=== PATIENT | female | born 2005 | race Caucasian/White ===

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

== ENCOUNTER 2024-01-26 19:35 | Emergency (ER) | payer OTHER, SELFPAY ==
--- OUTSIDE RECORDS SUMMARY | 2024-01-26 19:38 | XMS REPORT | Continuity of Care Document ---
Author Name Unknown Address [address] [place] [address] [facility] thconnect Address [address] [place] [address] Care Team Providers Care Cost Manager Name Role Phone Jane Parnell Primary Care Physician ELIZ LEE Attending Clinician Unavail EL Trejo Attending Clinician Unavailable ELIZ LEE Attending Clinician Unavail able Doctor Unassigned, [place] Attending Clinician U RADHA Hoang Attending Clinician Unavailable Jane Parnell Attending Clinician Lisa Palomares Attending Clinician BARON Almanza Attending Clinician Baron Laws MD Attending Clinician [phone] BENITA OLGUIN Attending Clinician Unavailable ELSA WINKLER Attending Clinician EL Benoit Attending Clinician ELIZ Casanova Admitting Clinician LESA Suazo Admitting Clinician Shiva malone Payers Payer Name Policy Type Policy Number Effective Date Expirati on Date Source [facility] MEDICAID STAR [id number] 2021 00:00:00 Problems Condition Name Condition Details Condition Category Status Onset Date Resolution Date Last Treatment Date Treating Clinician Comments Source 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 Active 2022-03 00:00: 00 [facility] Allergies, Adverse Reactions, Alerts Allergy Name Allergy Type Status Severity Reaction(s) Onset Date Inactive Date Treating Clinician Comments Source NO KNOWN ALLERGIE S Drug Class Active [facility] Social History Social Habit Start Date Stop Date Quantity Comments Source Sexual orientation [facility] Alcohol intake 2022-12-28 00:00:00 2022-12-28 00:00:00 Lifetime non-drinker (finding) [facility] Exposure to SARS-CoV-2 (event) 2022-07-24 00:00:00 2022-08-03 11:01:00 Not sure [facility] Tobacco use and exposure 2022-08-03 00:00:00 2022-08-03 00:00:00 Smokeless tobacco non-user [facility] History of Social function 2022-08-03 00:00:00 2022-08-03 00:00:00 [facility] Sex Assigned At 2005 00:00:00 2005 00:00:00 [facility] Smoking Status Start Date Stop Date Source Tobacco smoking consumption unknown [facility] Never smoked tobacco [facility] Medications Ordered Medication Name Filled Medication Name Start Date Stop Date Current Medication? Ordering Clinician Indication Dosage Frequency Signature (SIG) Comments Components Source sertraline (Zoloft) 50 MG tablet 11-23 00:00: 00 Yes [facility] Vital Signs Vital Name Observation Time Observation Value Comments S ource Systolic blood pressure 2022-12-28 18:32:00 123 mm[Hg] [facility] Diastolic blood pressure 2022-12-28 18:32:00 88 mm[Hg] [facility] Heart rate 2022-12-28 18:32:00 91 /min [facility] Body temperature 2022-12-28 18:32:00 36.11 Lyn [facility] Body height 2022-12-28 18:32:00 165.1 cm [facility] Body weight 2022-12-28 18:32:00 65.772 [facility] BMI 2022-12-28 18:32:00 24.13 kg/m2 [facility] Body mass index (BMI) [Percentile] Per age and sex 2022-12-28 18:32:00 76.95 % [facility] Systolic blood pressure 2022-09-07 15:05:00 145 mm[Hg] [facility] Diastolic blood pressure 2022-09-07 15:05:00 94 mm[Hg] [facility] Heart rate 2022-09-07 15:05:00 92 /min [facility] Body temperature 2022-09-07 15:05:00 36.11 Lyn [facility] Body height 2022-09-07 15:05:00 162.6 cm [facility] Body weight 2022-09-07 15:05:00 74.844 [facility] BMI 2022-09-07 15:05:00 28.32 kg/m2 [facility] Body mass index (BMI) [Percentile] Per age and sex 2022-09-07 15:05:00 92.51 % [facility] Heart rate 2022-08-03 16:05:00 85 /min [facility] Body temperature 2022-08-03 16:05:00 36.28 Lyn [facility] Body height 2022-08-03 16:05:00 165.1 cm [facility] Body weight 2022-08-03 16:05:00 81.647 [facility] BMI 2022-08-03 16:05:00 29.95 kg/m2 [facility] Body mass index (BMI) [Percentile] Per age and sex 2022-08-03 16:05:00 94.85 % [facility] Systolic blood pressure 2022-08-03 16:05:00 114 mm[Hg] [facility] Diastolic blood pressure 2022-08-03 16:05:00 78 mm[Hg] [facility] Procedures Procedure Date / Time Performed Performing Clinicia n Source EXTERNAL PROVIDER RECORDS 2022-08-25 05:01:00 Doctor Unassigned, [place] [facility] Encounters Start Date/Time End Date/Time Encounter Type Admission Type Attending Clinicians Care Facility Care Department Encounter ID Source 2022-11-17 15:28:20 Inpatient ELIZ LEE [facility] [id number] [facility] 2022-09-22 14:08:15 Outpatient [facility] [id number] [facility] 2022-08-30 10:35:13 Outpatient [facility] [id number] [facility] 2022-08-03 11:00:31 Outpatient [facility] [id number] [facility] 2022-07-25 14:29:39 Outpatient [facility] [id number] [facility] 2022-07-12 15:59:27 Outpatient [facility] [id number] [facility] 2022-07-06 16:02:15 Outpatient [facility] [id number] [facility] 2022-06-06 08:35:41 Outpatient [facility] [id number] [facility] 2022-06-05 15:28:44 Outpatient [facility] [id number] [facility] 2023-10-15 09:00:00 2023-10-15 09:00:00 Outpatient EL VAZQUEZ [facility] [id number] [facility] 2022-12-28 13:30:00 2022-12-28 13:30:00 Office Visit ELIZ LEE [id number] [id number] [facility] 2022-12-08 07:45:00 2022-12-08 07:45:00 Outpatient ELIZ LEE [facility] [id number] [facility] 2022-09-07 10:15:00 2022-09-07 10:15:00 Office Visit ELIZ LEE [address] [id number] [id number] [facility] 2022-08-25 00:00:00 2022-08-25 00:00:00 Orders Only Doctor Unassigned, [place] [facility] [id number] [facility] 2022-08-17 09:00:00 2022-08-17 09:00:00 Outpatient RADHA SEGURA [facility] [id number] [facility] 2022-08-17 00:00:00 2022-08-17 00:00:00 Telephone Jane Kevin [facility] [id number] [facility] 2022-08-15 00:00:00 2022-08-15 00:00:00 Telephone Lisa Yoon [facility] [id number] [facility] 2022-08-10 13:00:00 2022-08-10 13:00:00 Outpatient BARON MORAN [facility] [id number] [facility] 2022-08-09 14:30:00 2022-08-09 15:33:45 Outpatient BARON MORAN [facility] [id number] [facility] 2022-08-09 14:30:00 2022-08-09 15:33:45 Ancillary Visit Lisa Yoon Craig L [facility] [id number] [facility] 2022-08-09 13:45:00 2022-08-09 13:45:00 Outpatient BARON MORAN [facility] [id number] [facility] 2022-08-03 11:00:00 2022-08-03 11:00:00 Office Visit ELIZ LEE [id number] [id number] [facility] 2022-05-25 11:07:00 2022-06-27 10:15:00 Inpatient E BENITA OLGUIN [facility] [id number] [facility] 2022-06-15 12:45:00 2022-06-15 12:45:00 Outpatient ELSA WINKLER [facility] [id number] [facility] 2022-05-25 09:06:00 2022-05-25 23:59:00 Outpatient EL COLBY [facility] [id number] [facility] 2022-05-25 05:00:00 2022-05-25 05:00:00 Outpatient ELSA WINKLER [facility] [id number] [facility]
--- NOTE | 2024-01-26 20:12 | ER ---
Nurse's Notes [facility] Name: Gabriela Crowe Age: 18 yrs Sex: Female : 2005 Arrival Date: 01/26/2024 Time: 19:35 Bed 20 Private MD: Diagnosis: Suicidal ideations;Schizophrenia, unspecified;Bipolar disorder, unspecified Presentation: 01/25 19:50 Chief complaint: Pts father states that patient tried to runaway with boyfriend on cm10 . Pt's father brought patient back home. Pt has been refusing to take medication over the last 3 nights and pt was cutting left arm with scissors. Pt reports SI and denies HI. Pt states that she has cut herself in the past. Pt states that she is tired of her stepmom and her stepmoms granddaughter to stop controlling her life. Pt states that she does not want to take her medication because she doesn't like how it makes her feel. Coronavirus screen: Client denies travel out of the [place] in the last 14 days. Ebola Screen: Patient denies travel to an Ebola-affected area in the 21 days before illness onset. No symptoms or risks identified at this time. Initial Sepsis Screen: Does the patient have a suspected source of infection? No. Patient's initial sepsis screen is negative. Initial Sepsis Screen: Does the patient meet any 2 criteria?. Risk Assessment: Do you want to hurt yourself or someone else? Patient reports desire/thoughts of hurting themselves or someone else. Provider notified. 19:50 Onset of symptoms was January 26, 2024. 10 19:52 Method Of Arrival: Ambulatory cm10 19:52 Acuity: RAI 2 cm10 Triage Assessment: 19:58 General: Appears in no apparent distress. comfortable, Behavior is calm, cooperative. cm10 Pain: Denies pain. Neuro: No deficits noted. Level of Consciousness is awake, alert, obeys commands, Oriented to person, place, time, situation, Appropriate for age. Respiratory: No deficits noted. Airway is patent Respiratory effort is even, unlabored, Respiratory pattern is regular, symmetrical. 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 - Infectious Disease History:: Denies. - Social history:: Smoking status: Patient denies any tobacco usage or history of. Screenin:02 [facility] ED Fall Risk Assessment (Adult) History of falling in the last 3 months, rg5 including since admission No falls in past 3 months (0 pts) Confusion or Disorientation No (0 pts) Intoxicated or Sedated No (0 pts) Impaired Gait No (0 pts) Mobility Assist Device Used No (0 pt) Altered Elimination No (0 pt) Score/Fall Risk Level 0 - 2 = Low Risk Oriented to surroundings, Maintained a safe environment, Hourly rounding (assess needs \\T\\ fall precautionary measures) done. Abuse screen: Denies threats or abuse. Nutritional screening: No deficits noted. Tuberculosis screening: No symptoms or risk factors identified. Assessment: 20:02 General: Appears in no apparent distress. comfortable, Behavior is calm, cooperative, rg5 appropriate for age. 20:02 Pain: Denies pain. Neuro: Level of Consciousness is awake, alert, obeys commands, rg5 Oriented to person, place, time, situation, Reports suicidal ideation. Cardiovascular: Patient's skin is warm and dry. Rhythm is sinus rhythm. Respiratory: Airway is patent Trachea midline Respiratory effort is even, unlabored, Respiratory pattern is regular, symmetrical. GI: Abdomen is round non-distended. : No signs and/or symptoms were reported regarding the genitourinary system. EENT: No deficits noted. Derm: Skin is intact, Skin is dry, Skin is normal, Skin temperature is warm. Musculoskeletal: Circulation, motion, and sensation intact. Range of motion: intact in all extremities. 20:03 General: PT STATES THAT THE ONLY VISITOR SHE WANTS IS HER BOYFRIEND JESSICA. DOES NOT cm10 WANT FATHER IN ROOM.. 21:00 Reassessment: No changes from previously documented assessment. Patient and/or family rg5 updated on plan of care and expected duration. Pain level reassessed. 21:00 General: Appears in no apparent distress. comfortable. Respiratory: Airway is patent rg5 Trachea midline Respiratory effort is even, unlabored, Respiratory pattern is regular, symmetrical. 22:48 Reassessment: No changes from previously documented assessment. Patient and/or family rg5 updated on plan of care and expected duration. Pain level reassessed. General: Appears in no apparent distress. comfortable. Respiratory: Airway is patent Trachea midline Respiratory effort is even, unlabored, Respiratory pattern is regular, symmetrical. 01/26 00:20 Reassessment: No changes from previously documented assessment. Patient and/or family rg5 updated on plan of care and expected duration. Pain level reassessed. :23 Reassessment: REPORT GIVEN TO ALISA YOUNG RN. dd2 01:20 Reassessment: No changes from previously documented assessment. Patient and/or family rg5 updated on plan of care and expected duration. Pain level reassessed. 01:20 General: Appears in no apparent distress. comfortable, Behavior is calm, cooperative, rg5 appropriate for age. Respiratory: Airway is patent Trachea midline Respiratory effort is even, unlabored, Respiratory pattern is regular, symmetrical. Psych: 01/25 19:50 [place] Suicide Severity Screening: In the past month, have you wished you were cm10 or wished you could go to sleep and not wake up? Patient responds "yes." "In the past month, have you actually had any thoughts of killing yourself?" Patient responds "yes." "In your lifetime, have you ever done anything, started to do anything, or prepared to do anything to end your life?" Patient responds "no.". Subjective: Delusions are denied, Hallucinations are denied. Objective: Patient is cooperative, Speech is normal, Affect is appropriate, Patient has mutilated themselves by Superficial lacerations to left arm. Pt denies substance abuse. Commitment: Patient will be a voluntary commitment. 20:02 Safety Checks: Personal items have been removed. Door is open. No visitors are present rg5 at this time. 20:02 Interventions: Removed personal items and placed in bag. Patient placed in hospital rg5 gown. Searched person for dangerous items. Urine collected and sent for urine drug test. Belonging list filled out. Vital Signs: 19:52 BP 134 / 89; Pulse 71; Resp 18; Temp 98.5(O); Pulse Ox 99% on R/A; Weight 87.5 kg; Pain cm10 0/10; 20:55 BP 115 / 62; Pulse 68; Resp 18; Temp 97.2; Pulse Ox 99% on R/A; af3 01/26 01:31 BP 109 / 53; Pulse 60; Resp 18; Temp 97.4; Pulse Ox 100% on R/A; af3 01/25 19:52 Pain Scale: Adult cm10 [place] Coma Score: 01/25 20:02 Eye Response: spontaneous(4). Motor Response: obeys commands(6). Verbal Response: rg5 oriented(5). Total: 15. ED Course: 19:38 Patient arrived in ED. ra3 19:40 Belkys Ca PA-C is PHCP. sb4 19:40 Beau Mendes MD is Attending Physician. sb4 19:58 Triage completed. cm10 19:59 Arm band placed on left wrist. Patient placed in an exam room, on a stretcher. cm10 20:02 Safety Checks: Personal items have been removed. The door is open or patient has been rg5 placed in a hallway bed/chair. Sitter present at this time. 20:02 Patient has correct armband on for positive identification. Placed in gown. Bed in low rg5 position. Side rails up X 1. Valuables inventory done. See valuables checklist. Noise minimized. PO fluids given. Verbal reassurance given. 20:02 No provider procedures requiring assistance completed. rg5 20:19 Jason Reveles, RN is Primary Nurse. rg5 20:35 EKG done, by engineering technical writer. af3 20:55 Urinalysis w/ reflexes Sent. af3 20:55 Urine Drug Screen Sent. af3 21:30 Inserted saline lock: 20 gauge in left antecubital area, using aseptic technique. Blood rg5 collected. Flushed with 10 mL NS. 21:50 Contacted [facility] for evaluation. rv1 22:17 Sondra with [facility] ETA 30 mins. rv1 01/26 01:37 Provided Education on: post er care. rg5 01:37 IV discontinued, bleeding controlled, No redness/swelling at site. Pressure dressing rg5 applied. Administered Medications: 01/25 21:30 Drug: Macrobid PO 100 mg PO once; administer with food Route: PO; rg5 22:00 Follow up: Response: No adverse reaction rg5 Medication: 20:02 VIS not applicable for this client. rg5 Outcome: 20:11 ER care complete, transfer ordered by . sb4 23:33 ER care complete, transfer ordered by MD. rush4 01/26 01:38 [place] [facility] [place] Condition: stable Discharge instructions given to EMS, Instructed on the need for transfer, 01:39 Patient left the ED. rg5 Signatures: Priya De RN RN vc1 Belkys Ca PA-C PA-C sb4 Eunice Burnette rv1 Trudy Mohan RN RN cm10 Gabby Olea ra3 Jason Reveles RN RN rg5 Berta Adams af3 LACEY ATKINSON RN RN dd2 Corrections: (The following items were deleted from the chart) 01/25 20:00 19:52 Chief complaint: Pts father states that patient tried to runaway with boyfriend cm10 on . Pt's father brought patient back home. Pt has been refusing to take medication over the last 3 nights and pt was cutting left arm with scissors. Pt reports SI and denies HI. Pt states that she has cut herself in the past. Pt states that she is tired of her stepmom and her stepmoms granddaughter to stop controlling her life. Pt states that she does not want to take her medication because she doesn't like how it makes her feel. cm10 20:00 19:52 Coronavirus screen: Client denies travel out of the [place] in the last 14 days. [id number] 20:00 19:52 Ebola Screen: Patient denies travel to an Ebola-affected area in the 21 days cm10 before illness onset. No symptoms or risks identified at this time. cm10 20:00 19:52 Initial Sepsis Screen: Does the patient meet any 2 criteria? cm10 cm10 20:00 19:52 Risk Assessment: Do you want to hurt yourself or someone else? Patient reports cm10 desire/thoughts of hurting themselves or someone else. Provider notified. cm10 20:00 19:52 Onset of symptoms was January 26, 2024 cm10 cm10 20:00 19:52 Initial Sepsis Screen: Does the patient have a suspected source of infection? No. cm10 Patient's initial sepsis screen is negative. cm10 01/26 05:17 01:38 Discharge instructions given to EMS, Instructed on the need for transfer, rg5 vc1
--- NOTE | 2024-01-26 20:12 | EDPHYS ---
Physician Documentation [facility] Name: Gabriela Crowe Age: 18 yrs Sex: Female : 2005 Arrival Date: 01/26/2024 Time: 19:35 Bed 20 Private MD: ED Physician Beau Mendes HPI: 01/25 19:59 This 18 yrs old Female presents to ER via Ambulatory with complaints of Suicidal sb4 Ideation. 19:59 The patient presents to the emergency department with a history of a suicide gesture, sb4 where the patient cut wrists, suicide ideation, and the patient has a plan, to cut oneself and bleed. Onset: The symptoms/episode began/occurred today. Past psychiatric history: Prior diagnosis: bipolar disorder, schizophrenia, Psychiatric medications include: risperidone. Associated signs and symptoms: Pertinent negatives: homicidal ideation, substance abuse. 20:00 The patient has experienced a previous episode, many years ago. Patient states that she sb4 tried to run away with her boyfriend 3 days ago but had no money. Her dad brought her back home and she has been refusing to take her psych meds since. Today she tried to cut herself and kill herself with scissors. States that she has attempted in the past in a similar manner. She has been inpatient. Denies any homicidal ideation. 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 - Infectious Disease History:: Denies. - Social history:: Smoking status: Patient denies any tobacco usage or history of. ROS: 20:01 Constitutional: Negative for fever, chills, and weight loss, sb4 20:01 Psych: Positive for suicide gesture, suicidal ideation, 20:01 All other systems are negative, Exam: 20:01 Head/Face: Normocephalic, atraumatic. Eyes: Extra-ocular motions intact. Periorbital sb4 areas with no swelling, redness, or edema. ENT: Mucous membranes moist. 20:01 Constitutional: The patient appears in no acute distress, alert, awake, agitated, 20:01 Skin: injury, Minor superficial laceration left forearm, 20:01 Psych: Behavior/mood is cooperative, suicidal, angry, Affect is flat, Oriented to person, place, time, Patient having thoughts of suicide. Plan for suicide is cut wrists Vital Signs: 19:52 BP 134 / 89; Pulse 71; Resp 18; Temp 98.5(O); Pulse Ox 99% on R/A; Weight 87.5 kg; Pain cm10 0/10; 20:55 BP 115 / 62; Pulse 68; Resp 18; Temp 97.2; Pulse Ox 99% on R/A; af3 01/26 01:31 BP 109 / 53; Pulse 60; Resp 18; Temp 97.4; Pulse Ox 100% on R/A; af3 01/25 19:52 Pain Scale: Adult cm10 [place] Coma Score: 01/25 20:02 Eye Response: spontaneous(4). Motor Response: obeys commands(6). Verbal Response: rg5 oriented(5). Total: 15. MDM: 19:58 Medical Screening Exam initiated sb4 21:19 Data reviewed: vital signs, nurses notes, lab test result(s), EKG, radiologic studies. sb4 Counseling: I had a detailed discussion with the patient and/or guardian regarding the historical points, exam findings, and any diagnostic results supporting the discharge/admit diagnosis, lab results, radiology results, the need to transfer to another facility, [facility] does not immediately have the required specialist. 22:00 Differential diagnosis: drug withdrawal. acute psychotic break, depression, psychosis sb4 secondary to non-compliance. 01/26 00:22 Management of patient was discussed with the following: [facility]. 01/25 19:57 Order name: Acetaminophen; Complete Time: 21:48 sb4 01/25 19:57 Order name: Basic Metabolic Panel; Complete Time: 21:48 sb4 01/25 19:57 Order name: CBC with Diff; Complete Time: 21:33 sb4 01/25 19:57 Order name: ETOH Level; Complete Time: 21:44 sb4 01/25 19:57 Order name: Hepatic Function; Complete Time: 21:48 sb4 01/25 19:57 Order name: PT-INR; Complete Time: 21:41 sb4 01/25 19:57 Order name: Test, Urine; Complete Time: 21:00 sb4 01/25 19:57 Order name: Ptt, Activated; Complete Time: 21:41 sb4 01/25 19:57 Order name: Salicylate; Complete Time: 22:03 sb4 01/25 19:57 Order name: Urinalysis w/ reflexes; Complete Time: 21:00 sb4 01/25 19:57 Order name: Urine Drug Screen; Complete Time: 21:08 sb4 01/25 21:01 Order name: Urine Culture EDAR 01/25 19:57 Order name: IV Saline Lock; Complete Time: 21:24 sb4 01/25 19:57 Order name: Labs collected and sent; Complete Time: 21:24 sb4 01/25 19:57 Order name: Suicide Precautions; Complete Time: 21:24 sb4 01/25 19:57 Order name: Suicide Screening ([place]); Complete Time: 21:24 sb4 EC/23 20:34 Rate is 69 beats/min. Rhythm is regular, Normal Sinus Rhythm. [place] interval is normal at sb4 124 msec. QRS interval is normal at 88 msec. QT interval is normal at 396 msec. No Q waves. T waves are Normal. No ST changes noted. Clinical impression: Normal ECG. Interpreted by me. Reviewed by me. Administered Medications: 21:30 Drug: Macrobid PO 100 mg PO once; administer with food Route: PO; rg5 22:00 Follow up: Response: No adverse reaction rg5 Disposition: 01/26 02:39 Co-signature as Attending Physician, Beau Mendes MD I reviewed the patient's care rt provided by the Advanced Practice Provider and agree with the diagnosis and treatment plan. Disposition Summary: 01/26/24 23:33 Transfer Ordered Notes: Transfer Location: Psych Facility(01/26/24 23:33) sb4 Reason: Higher level of care(01/26/24 23:33) sb4 Condition: Fair(01/26/24 23:33) sb4 Problem: new(01/26/24 23:33) sb4 Symptoms: are unchanged(01/26/24 23:33) sb4 Accepting Physician: psych(01/27/24 01:39) rg5 Diagnosis - Suicidal ideations(01/26/24 23:33) sb4 - Schizophrenia, unspecified sb4 - Bipolar disorder, unspecified sb4 Discharge Instructions: - Discharge Summary Sheet rv1 Forms: - Medication Reconciliation Form sb4 - SBAR form rv1 Prescriptions: - Macrobid 100 mg Oral capsule - take 1 capsule ORAL route every 12 hours for 5 days; 10 capsule; Refills: 0, sb4 Product Selection Permitted Signatures: Dispatcher [employer] EDBelkys Louise PA-C PA-C sb4 Beau Mendes MD MD rt Trudy Mohan RN RN cm10 Jason Reveles, VINOD RN rg5 Corrections: (The following items were deleted from the chart) 01/25 20:27 19:57 EKG - Nurse/Tech ordered. sb4 sb4 20:32 20:11 psych sb4 sb4 20:32 20:11 Psych Facility sb4 sb4 20:32 20:11 Higher level of care sb4 sb4 20:32 20:11 Fair sb4 sb4 20:32 20:11 new sb4 sb4 20:32 20:11 are unchanged sb4 sb4 20:32 20:11 Suicidal ideations sb4 sb4 01/26 01:39 01/25 23:33 psych sb4 rg5
[2024-01-26 20:56] LABS: Specific Gravity > 1.030 (1.005-1.030)
[2024-01-26 20:57] LABS: Specific Gravity > 1.030 (1.005-1.030); Sqamous Epithelial <5 /HPF (None Seen); Urine Bacteria <20 /HPF (<20); Urine Bilirubin NEGATIVE (Negative); Urine Blood 3+ (OVER) (Negative); Urine Clarity Extremely Turbid (Clear); Urine Color Yellow (Yellow); Urine Crystals Unidentified Few /HPF (None Seen); Urine Culture Reflex Order REFLEXED; Urine Glucose NEGATIVE (Negative); Urine Ketones NEGATIVE (Negative); Urine Microscopic Reflex YN ORDER UMIC; Urine Mucus Slight /HPF (None Seen); Urine Nitrite 2+ (Negative); Urine Protein TRACE (Negative); Urine RBC >50 /HPF (None Seen); Urine Urobilinogen Normal (Normal); Urine WBC 20-50 /HPF (<5); Urine WBC Clump Rare /HPF (None Seen); Urine Yeast (Budding) Trace /HPF (None Seen)
[2024-01-26 21:05] LABS: Barbiturates NEGATIVE (NEGATIVE); Benzodiazepines NEGATIVE (NEGATIVE); Cocaine NEGATIVE (NEGATIVE); METHAMPHETAM NEGATIVE (NEGATIVE); Methadone NEGATIVE (NEGATIVE); Opiates NEGATIVE (NEGATIVE); Phencyclidine NEGATIVE (NEGATIVE); THC Cannibis NEGATIVE (NEGATIVE)
[2024-01-26] MEDS ORDERED: NITROFURAN MACRO 100 MG CAP PO ONE (21:27)
[2024-01-26 21:31] LABS: Absolute Basophils 0.1 K/uL (0-0.5); Absolute Eosinophils 0.5 K/uL (0-0.5); Absolute Lymphocytes (CBC) 3.4 K/uL (0.7-4.9); Absolute Monocytes 0.8 K/uL (0.1-1.3); Absolute Neutrophil 6.2 K/uL (1.8-8.0); Basophils % 0.9 % (0-1.3); Eosinophils % 4.3 % (0-4.4); Hematocrit 35.6 % (36.0-45.0); Hemoglobin 11.7 g/dL (12.0-15.0); Lymphocytes % 31.3 % (15.3-44.8); MCH 28.3 pg (27.0-35.0); MCHC 32.8 g/dL (32.0-36.0); MCV 86.3 fL (80-100); MPV 8.6 fL (7.6-11.3); Monocytes % 6.9 % (3.3-12.3); Neutrophils % 56.6 % (41.7-73.7); Nucleated Red Blood Cells % 0.1 % (0-0); Platelets 306 thou/uL (152-406); RBC Red Blood Cell Count 4.13 M/uL (3.86-4.86); Red Cell Distribution Width 13.3 % (12.1-15.2)
[2024-01-26 21:40] LABS: PT Prothrombin Time 11.9 SECONDS (9.4-12.5); PTT, Activated Partial Thromb 35.6 SECONDS (24.3-36.9); Protime INR 1.06
[2024-01-26 21:48] LABS: ALT/SGPT 18 U/L (13-56); AST/SGOT < 10 U/L (15-37); Albumin 3.3 g/dL (3.4-5.0); Albumin/Globulin Ratio 0.8 (1.1-1.8); Alkaline Phosphatase 79 U/L (45-117); Anion Gap 9.9 mEq/L (5.0-15.0); BUN Blood Urea Nitrogen 15 mg/dL (7-18); Bicarbonate 24 mEq/L (21-32); Bilirubin Direct < 0.2 mg/dL (0-0.2); Bilirubin Total 0.2 mg/dL (0.2-1.0); Globulin 3.9 g/dL (2.3-3.5); Glomerular Filtration Rate 98 ml/min (=/>90); Glucose Level 116 mg/dL (74-106); Potassium 3.9 mEq/L (3.5-5.1); Protein, Total 7.2 g/dL (6.4-8.2); Sodium Level 141 mEq/L (136-145)
[2024-01-27 02:44] VITALS: BP 109/53; TEMP 97.4; O2SAT 100
--- NOTE | 2024-01-28 12:01 | EKG ---
Test Date: 2024-01-26 Test Time: 20:32:22 Business Support Assistant: AF MEASUREMENT RESULTS: Intervals: Rate: 69 [place]: 124 QRSD: 88 QT: 396 QTc: 424 [place]: P: 36 NJ: 124 QRS: 62 T: 65 INTERPRETIVE STATEMENTS: Normal sinus rhythm Normal ECG No previous ECG available for comparison Electronically Signed On 01-28-24 11:59:22 REFINERY OPERATOR REFORMING UNIT by Derik Borja
== END 2024-01-27 01:39 ==
LOC: ER 19:35
DX: R45.851 Suicidal ideations (principal); F25.0 Schizoaffective disorder, bipolar type
CPT/HCPCS: 36415; 80048; 80076; 80143; 80179; 80307; 81001; 81025; 82077; 85025; 85610; 85730; 87077; 87086; 87088; 87186; 93005; 99285

== ENCOUNTER 2024-07-10 21:44 | Emergency (ER) | payer SELFPAY ==
--- OUTSIDE RECORDS SUMMARY | 2024-07-10 21:52 | XMS REPORT | Continuity of Care Document ---
Author Name Unknown Address [address] [facility] [address] [place] [address] [facility] Address [address] [address] [place] [address] Care Team Providers Care Accessioner Name Role Phone Jane Parnell Primary Care Physician + [phone] ELIZ LEE Attending Clinician Unavail prabhu Cruz MD, Deedee Weiner Attending Clinician [phone] Liliana Muniz MD Attending Clinician [phone] Yonathan Crawford MD Attending Clinician [phone] YONATHAN CRAWFORD Attending Clinician Unavailable EL VAZQUEZ Attending Clinician Unavailable ELIZ LEE Attending Clinician Unavail able Doctor Unassigned, [place] Attending Clinician U RADHA Hoang Attending Clinician Unavailable Jane Parnell Attending Clinician [phone] Lisa Palomares Attending Clinician SALVATORE Almanza Attending Clinician UnavailSalvatore Zafar MD Attending Clinician [phone] BENITA OLGUIN Attending Clinician Unavailable ELSA WINKLER Attending Clinician EL Benoit Attending Clinician UnavailLiliana Campbell MD Admitting Clinician LILIANA MUNIZ Admitting Clinician Unavailable ELIZ LEE Admitting Clinician ELSA Suazo Admitting Clinician Shiva malone Payers Payer Name Policy Type Policy Number Effective Date Expirati on Date Source [facility] MEDICAID STAR [id number] 2021 00:00:00 Problems Condition Name Condition Details Condition Category Status Onset Date Resolution Date Last Treatment Date Treating Clinician Comments Source Bipolar disorder, unspecifie d Bipolar disorder, unspecifie d Disease Active 2023-03 00:00: 00 [facility] History of traumatic brain injury History of traumatic brain injury Disease Active 2023-03 00:00: 00 [facility] White coat syndrome with hypertensi on White coat syndrome with hypertensi on Disease Active 2023-03 00:00: 00 [facility] Autism Autism Disease Active 2023-03 00:00: 00 [facility] 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 Active 2022-03 00:00: 00 [facility] Risk for suicide Risk for suicide Disease Resolve d 2023-03 00:00: 00 2024-02-01 00:00:00 2024-02-01 15:57:20 [facility] Seizure Seizure Disease Resolve d 2023-03 00:00: 00 2024-02-01 00:00:00 2024-02-01 15:57:20 [facility] Leukocytos is Leukocytos is Disease Resolve d 2023-03 00:00: 00 2024-02-01 00:00:00 2024-02-01 15:57:23 [facility] Sinus tachycardi a Sinus tachycardi a Disease Resolve d 2023-03 00:00: 00 2024-02-01 00:00:00 2024-02-01 15:57:35 [facility] Allergies, Adverse Reactions, Alerts Allergy Name Allergy Type Status Severity Reaction(s) Onset Date Inactive Date Treating Clinician Comments Source NO KNOWN ALLERGIE S Drug Class Active [facility] Social History Social Habit Start Date Stop Date Quantity Comments Source Gender identity 2023-05-26 08:00:22 Identifies as female gender (finding) [facility] ASSERTION Possible [facility] Sexual orientation [facility] History of Social function 2024-02-01 00:00:00 2024-02-01 00:00:00 [facility] Alcohol intake 2022-12-28 00:00:00 2022-12-28 00:00:00 Lifetime non-drinker (finding) [facility] Exposure to SARS-CoV-2 (event) 2022-07-24 00:00:00 2022-08-03 11:01:00 Not sure [facility] Tobacco use and exposure 2022-08-03 00:00:00 2022-08-03 00:00:00 Smokeless tobacco non-user [facility] Sex Assigned At 2005 00:00:00 2005 00:00:00 [facility] Smoking Status Start Date Stop Date Source Never smoked tobacco [facility] Tobacco smoking consumption unknown [facility] Medications Ordered Medication Name Filled Medication Name Start Date Stop Date Current Medication? Ordering Clinician Indication Dosage Frequency Signature (SIG) Comments Components Source risperiDONE (RisperDAL) 1 MG tablet risperiDONE (RisperDAL) 1 MG tablet 2023-03 19:07: 25 Yes 1mg Take 1 mg by mouth at bedtime. [facility] nitrofurant oin, macrocrysta l-monohydra te, (Macrobid) 100 MG capsule nitrofurant oin, macrocrysta l-monohydra te, (Macrobid) 100 MG capsule 2023-03 19:07: 25 Yes 100mg Q.5D Take 100 mg by mouth in the morning and 100 mg in the evening. [facility] escitalopra m (Lexapro) 5 MG tablet escitalopra m (Lexapro) 5 MG tablet 2023-03 19:07: 25 Yes 5mg QD Take 5 mg by mouth 1 time each day. [facility] lacosamide (Vimpat) tablet 50 mg lacosamide (Vimpat) tablet 50 mg 2023-03 19:00: 00 Yes 50mg Q.5D 50 mg, Oral, Every 12 hours scheduled, First dose (after last reorder) on Sun02/01/24 at 1900 [facility] sertraline (Zoloft) tablet 50 mg sertraline (Zoloft) tablet 50 mg 2023-03 09:00: 00 Yes 50mg QD 50 mg, Oral, Daily, First dose on Sun02/01/24 at 0900 [facility] magnesium sulfate IVPB 2 g magnesium sulfate IVPB 2 g 2023-03 08:00: 00 01-31 14:38 :00 No 2g 2 g, Intravenou s, at 25 mL/hr, Administer over 2 Hours, Once, On Sun02/01/24 at 0800, For 1 dose [facility] lacosamide (Vimpat) 50 MG tablet lacosamide (Vimpat) 50 MG tablet 2023-03 00:00: 00 03-02 23:59 :00 No [id number] 50mg Q.5D Take 1 tablet by mouth in the morning and 1 tablet before bedtime. [facility] lacosamide (Vimpat) 50 mg in sodium chloride 0.9 % 100 mL IVPB lacosamide (Vimpat) 50 mg in sodium chloride 0.9 % 100 mL IVPB 2023-03 21:00: 00 01-31 13:27 :40 No 50mg Q12H 50 mg, Intravenou s, at 200 mL/hr, Administer over 30 Minutes, Every 12 hours, First dose on Sun01/31/24 at 2100 [facility] enoxaparin (Lovenox) syringe 40 mg enoxaparin (Lovenox) syringe 40 mg 2023-03 11:10: 00 Yes 40mg 40 mg, Subcutaneo us, Every 24 hours, First dose on Sun01/31/24 at 1110, Indication s: VTE Prophylaxi s [facility] sodium chloride (NS) 0.9 % flush 10 mL sodium chloride (NS) 0.9 % flush 10 mL 2023-03 11:10: 00 Yes 10mL Q.5D 10 mL, Intravenou s, Every 12 hours scheduled, First dose on 01/31/24 at 1110, Administer at least once every 12 hours [facility] acetaminoph en (Tylenol) tablet 650 mg acetaminoph en (Tylenol) tablet 650 mg 2023-03 11:08: 26 Yes 650mg Q4H 650 mg, Oral, Every 4 hours PRN, mild pain (1-3), fever, moderate pain (4-6), headaches, Temp >100.4 F, Starting on Yumi 01/31/24 at 1108, Max acetaminop hen = 4000mg/day (4gm/day) [facility] sodium phosphates 30 mmol in sodium chloride 0.9 % 100 mL IVPB sodium phosphates 30 mmol in sodium chloride 0.9 % 100 mL IVPB 2023-03 11:08: 14 Yes 30mmol 30 mmol, Intravenou s, Administer over 4 Hours, As needed, Abnormal Lab Result, For NON-ICU Patients Only, Starting on Yumi 01/31/24 at 1108, Evaluate Potassium, Phosphorou s, and Sodium level prior to replacemen t.Phosphor ous IVPB replacemen t when K > 3.9 mEq/L: (For PO or NJ replacemen t option, see orders for potassium phosphate- sodium phosphate oral packet.) For phosphorou s 2 - 2.4 mg/dL and K > 3.9 mEq/L: Replace with Sodium Phosphate 15 mmol IVPB over 4 hrs. For phosphorou s 1.6 - 1.9 mg/dL and K > 3.9 mEq/L: Replace with Sodium Phosphate 30 mmol IVPB over 4 hrs. Recheck phosphorou s level 4 hours after replacemen t complete.N otify MD if Phosphorou s level < 1.6 mg/dL or Na > 148 mEq/L prior to replacemen t. *Use PO or NJ administra tion unless patient is first 12 hours post-op, active GI bleed, acute arrhythmia s, ischemic bowel or NPO. *DO NOT replace if patient is on dialysis, temperatur e < 35 Celsius, or serum creatinine > 2.0 mg/dL or GFR < 45 mL/min. [facility] sodium phosphates 15 mmol in sodium chloride 0.9 % 100 mL IVPB sodium phosphates 15 mmol in sodium chloride 0.9 % 100 mL IVPB 2023-03 11:08: 14 Yes 15mmol 15 mmol, Intravenou s, Administer over 4 Hours, As needed, Abnormal Lab Result, For NON-ICU Patients Only, Starting on Yumi 01/31/24 at 1108, Evaluate Potassium, Phosphorou s, and Sodium level prior to replacemen t.Phosphor ous IVPB replacemen t when K > 3.9 mEq/L: (For PO or NJ replacemen t option, see orders for potassium phosphate- sodium phosphate oral packet.) For phosphorou s 2 - 2.4 mg/dL and K > 3.9 mEq/L: Replace with Sodium Phosphate 15 mmol IVPB over 4 hrs. For phosphorou s 1.6 - 1.9 mg/dL and K > 3.9 mEq/L: Replace with Sodium Phosphate 30 mmol IVPB over 4 hrs. Recheck phosphorou s level 4 hours after replacemen t complete.N otify MD if Phosphorou s level < 1.6 mg/dL or Na > 148 mEq/L prior to replacemen t. *Use PO or NJ administra tion unless patient is first 12 hours post-op, active GI bleed, acute arrhythmia s, ischemic bowel or NPO. *DO NOT replace if patient is on dialysis, temperatur e < 35 Celsius, or serum creatinine > 2.0 mg/dL or GFR < 45 mL/min. [facility] Potassium Phosphates 30 mmol in sodium chloride 0.9 % 100 mL infusion Potassium Phosphates 30 mmol in sodium chloride 0.9 % 100 mL infusion 2023-03 11:08: 14 Yes 30mmol 30 mmol, Intravenou s, Administer over 4 Hours, As needed, Abnormal Lab Result, For NON-ICU Patients Only, Starting on Yumi 01/31/24 at 1108, Potassium and Phosphorou s replacemen t:For K 3.5 - 3.9 mEq/L AND phosphorou s 2.0 - 2.4 mg/dL: Replace with Potassium Phosphate 15 mMol IVPB over 4 hours. For K 3.1 - 3.4 mEq/L AND phosphorou s 2.0 - 2.4 mg/dL: Replace with KCL 20 meq PO/NJ (or IVPB over 2 hours) followed by Potassium Phosphate 15 mMol IVPB over 4 hours. For K 3.1 - 3.9 mEq/L AND phosphorou s 1.6 - 1.9 mg/dL: Replace with Potassium Phosphate 30 mMol IVPB over 4 hours. Recheck Potassium and Phosphorou s level 4 hours after replacemen t complete. Notify MD for K < 3.1 mEq/L or Phosphorou s < 1.6 mg/dL prior to replacemen t.*Use PO or NJ administra tion unless patient is first 12 hours post-op, active GI bleed, acute arrhythmia s, ischemic bowel or NPO. *DO NOT replace if patient is on dialysis, temperatur e < 35 Celsius, or serum creatinine > 2.0 mg/dL or GFR < 45 mL/min. [facility] potassium phosphates 15 mmol in sodium chloride 0.9 % 100 mL infusion potassium phosphates 15 mmol in sodium chloride 0.9 % 100 mL infusion 2023-03 11:08: 14 Yes 15mmol 15 mmol, Intravenou s, Administer over 4 Hours, As needed, PRN Abnormal Lab Result, For NON-ICU Patients Only., Starting on Yumi 01/31/24 at 1108, Potassium and Phosphorou s replacemen t:For K 3.5 - 3.9 mEq/L AND phosphorou s 2.0 - 2.4 mg/dL: Replace with Potassium Phosphate 15 mMol IVPB over 4 hours. For K 3.1 - 3.4 mEq/L AND phosphorou s 2.0 - 2.4 mg/dL: Replace with KCL 20 meq PO/NJ (or IVPB over 2 hours) followed by Potassium Phosphate 15 mMol IVPB over 4 hours. For K 3.1 - 3.9 mEq/L AND phosphorou s 1.6 - 1.9 mg/dL: Replace with Potassium Phosphate 30 mMol IVPB over 4 hours. Recheck Potassium and Phosphorou s level 4 hours after replacemen t complete. Notify MD for K < 3.1 mEq/L or Phosphorou s < 1.6 mg/dL prior to replacemen t.*Use PO or NJ administra tion unless patient is first 12 hours post-op, active GI bleed, acute arrhythmia s, ischemic bowel or NPO. *DO NOT replace if patient is on dialysis, temperatur e < 35 Celsius, or serum creatinine > 2.0 mg/dL or GFR < 45 mL/min. Maximum rate for peripheral administra tion 40 mL/hr, maximum rate for central line administra tion 100 mL/hr. [facility] potassium & sodium phosphates (Phos-NaK) 280-160-250 MG packet 2 packet potassium & sodium phosphates (Phos-NaK) 280-160-250 MG packet 2 packet 2023-03 11:08: 14 Yes 2{packe t} 2 packet, Oral, As needed, Abnormal Lab Result, For NON-ICU Patients Only, Starting on Yumi 01/31/24 at 1108, Oral Phosphorou s replacemen t when K is 3.5 - 4.5 mEq/L:(If the K is < 3.5 mEq/L, refer to IVPB Potassium Phosphate orders for replacemen t)Evaluate Potassium, Phosphorou s, and Sodium level prior to replacemen t. For Phosphorou s 2 - 2.4 mg/dL and K 3.5 - 4.5 mEq/L: Replace with 2 packets PO x 1 dose For Phosphorou s 1.6 - 1.9 mg/dL and K 3.5 - 4.5 mEq/L: Replace with 2 packets PO every 4 hours x 2 doses Recheck Potassium and Phosphorou s level 4 hours after replacemen t.Notify MD if PO4 level is <1.6mg/dL prior to replacemen t.*Use PO or NJ administra tion unless patient is first 12 hours post-op, active GI bleed, acute arrhythmia s, ischemic bowel or NPO. *DO NOT replace if patient is on dialysis, temperatur e < 35 Celsius, or serum creatinine > 2.0 mg/dL or GFR < 45 mL/min. [facility] potassium chloride IVPB 10 mEq potassium chloride IVPB 10 mEq 2023-03 11:08: 14 Yes 10meq 10 mEq, Intravenou s, at 100 mL/hr, Administer over 1 Hours, As needed, Abnormal Lab Result, For NON-ICU Patients Only, Starting on Yumi 01/31/24 at 1108, Evaluate Potassium and Phosphorou s level prior to replacemen t.Potassiu m chloride Peripheral infusion concentrat ion = 0.1 mEq/mLAdmi nister each KCL 10 mEq IVPB dose over 1 hour. Potassium replacemen t; phosphorou s > 2.4 mg/dL or phosphorou s level not available: For K = 3.5 - 3.9 mEq/L: Replace with KCL 20 mEq IVPB over 2 hours.? Recheck Potassium with next scheduled lab. For K = 3.1 - 3.4 mEq/L: Replace with KCL 40 mEq IVPB over 4 hours.? Recheck Potassium 4 hours after replacemen t. Potassium and Phosphorou s IV Replacemen t (See Potassium Phosphate orders): For K = 3.5 - 3.9 mEq/L AND Phosphorou s 2 - 2.4 mg/dL:? Replace with Potassium Phosphate 15 mMol IVPB over 4 hours. For K = 3.1 - 3.4 mEq/L AND Phosphorou s 2 - 2.4 mg/dL: Replace with KCL 20 mEq? IVPB over 2 hours followed by Potassium Phosphate 15 mMol IVPB over 4 hours.? For K = 3.1 - 3.9 mEq/L AND Phosphorou s 1.6 - 1.9 mg/dL: Replace with Potassium Phosphate 30 mMol IVPB over 4 hours.? Recheck Potassium and Phosphorou s levels 4 hours after replacemen t complete. Notify MD for K < 3.1 mEq/L or Phosphorou s < 1.6 mg/dL prior to replacemen t.*Use PO or NJ administra tion unless patient is first 12 hours post-op, active GI bleed, acute arrhythmia s, ischemic bowel or NPO. *DO NOT replace if patient is on dialysis, temperatur e < 35 Celsius, or serum creatinine > 2.0 mg/dL or GFR < 45 mL/min. [facility] Potassium chloride solution 20 mEq Potassium chloride solution 20 mEq 2023-03 11:08: 14 Yes 20meq 20 mEq, Nasogastri c, As needed, Abnormal Lab Result, For NON-ICU Patients Only, Starting on Yumi 01/31/24 at 1108, Evaluate Potassium and Phosphorou s level prior to replacemen t. Potassium replacemen t; phosphorou s > 2.4 mg/dL or phosphorou s level not available: For K = 3.5 - 3.9 mEq/L: Replace with KCL 20 mEq.? Recheck Potassium with next scheduled lab. For K = 3.1 - 3.4 mEq/L: Replace with KCL 40 mEq.? Recheck Potassium 4 hours after replacemen t. Potassium and Phosphorou s Replacemen t (See Phosphate replacemen t orders):Fo r K = 3.5 - 4.5 mEq/L AND Phosphorou s 2 - 2.4 mg/dL:? Replace with 2 packets of Potassium phosphate/ sodium phosphate oral powder x 1 dose. For K = 3.5 - 4.5 mEq/L AND Phosphorou s 1.6 - 1.9 mg/dL:? Replace with 2 packets of Potassium phosphate/ sodium phosphate oral powder Q4H x 2 doses. For K = 3.1 - 3.4 mEq/L AND Phosphorou s 2 - 2.4 mg/dL: Replace with KCL 20 mEq PO/NJ AND Potassium Phosphate 15 mMol IVPB over 4 hours.? For K = 3.1 - 3.4 mEq/L AND Phosphorou s 1.6 - 1.9 mg/dL: Replace with Potassium Phosphate 30 mMol IVPB over 4 hours.? Recheck Potassium and Phosphorou s levels 4 hours after replacemen t complete. Notify MD for K < 3.1 mEq/L or Phosphorou s < 1.6 mg/dL prior to replacemen t. *Use PO or NJ administra tion unless patient is first 12 hours post-op, active GI bleed, acute arrhythmia s, ischemic bowel or NPO. *DO NOT replace if patient is on dialysis, temperatur e < 35 Celsius, or serum creatinine > 2.0 mg/dL or GFR < 45 mL/min. [facility] Lem[facility] potassium chloride CR (Klor-Con M20) ER tablet 40 mEq potassium chloride CR (Klor-Con M20) ER tablet 40 mEq 2023-03 11:08: 14 Yes 40meq 40 mEq, Oral, As needed, Abnormal Lab Result, NON-ICU Patients Only, Starting on Yumi 01/31/24 at 1108, Evaluate Potassium and Phosphorou s level prior to replacemen t. Potassium replacemen t; phosphorou s > 2.4 mg/dL or phosphorou s level not available: For K = 3.5 - 3.9 mEq/L: Replace with KCL 20 mEq. Recheck Potassium with next scheduled lab. For K = 3.1 - 3.4 mEq/L: Replace with KCL 40 mEq.? Recheck Potassium 4 hours after replacemen t. Potassium and Phosphorou s Replacemen t: For K = 3.5 - 4.5 mEq/L AND Phosphorou s 2 - 2.4 mg/dL:? Replace with 2 packets of Potassium phosphate/ sodium phosphate oral powder x 1 dose. For K = 3.5 - 4.5 mEq/L AND Phosphorou s 1.6 - 1.9 mg/dL:? Replace with 2 packets of Potassium phosphate/ sodium phosphate oral powder Q4H x 2 doses. For K = 3.1 - 3.4 mEq/L AND Phosphorou s 2 - 2.4 mg/dL: Replace with KCL 20 mEq PO/NJ AND Potassium Phosphate 15 mMol IVPB over 4 hours. For K = 3.1 - 3.4 mEq/L AND Phosphorou s 1.6 - 1.9 mg/dL: Replace with Potassium Phosphate 30 mMol IVPB over 4 hours. Recheck Potassium and Phosphorou s levels 4 hours after replacemen t complete.N otify MD for K < 3.1 mEq/L or Phosphorou s < 1.6 mg/dL prior to replacemen t. *Use PO or NJ administra tion unless patient is first 12 hours post-op, active GI bleed, acute arrhythmia s, ischemic bowel or NPO. Do Not Crush the ER tablets. DO NOT replace if patient is on dialysis, temperatur e < 35 Celsius, or serum creatinine > 2.0 mg/dL or GFR < 45 mL/min. DO NOT CRUSH.? For patients able to take medication s orally or via feeding tube >/= 14 [place], may dissolve each 20 mEq tablet in 4 oz of water.? Allow about 2 minutes for the tablets to disintegra te.? Stir before giving to prepare slurry and administer .? Please exclude patient's with feeding tube less than 14 [place]bek (Dobhoff, J-tube, etc) and pediatric and patients. Do not crush or chew. Amy [facility]burn potassium chloride CR (Klor-Con M20) ER tablet 20 mEq potassium chloride CR (Klor-Con M20) ER tablet 20 mEq 2023-03 11:08: 14 Yes 20meq 20 mEq, Oral, As needed, Abnormal Lab Result, For NON-ICU Patients Only, Starting on Yumi 01/31/24 at 1108, Evaluate Potassium and Phosphorou s level prior to replacemen t. Potassium replacemen t; phosphorou s > 2.4 mg/dL or phosphorou s level not available: For K = 3.5 - 3.9 mEq/L: Replace with KCL 20 mEq. Recheck Potassium with next scheduled lab. For K = 3.1 - 3.4 mEq/L: Replace with KCL 40 mEq.? Recheck Potassium 4 hours after replacemen t. Potassium and Phosphorou s Replacemen t: For K = 3.5 - 4.5 mEq/L AND Phosphorou s 2 - 2.4 mg/dL:? Replace with 2 packets of Potassium phosphate/ sodium phosphate oral powder x 1 dose. For K = 3.5 - 4.5 mEq/L AND Phosphorou s 1.6 - 1.9 mg/dL:? Replace with 2 packets of Potassium phosphate/ sodium phosphate oral powder Q4H x 2 doses. For K = 3.1 - 3.4 mEq/L AND Phosphorou s 2 - 2.4 mg/dL: Replace with KCL 20 mEq PO/NJ AND Potassium Phosphate 15 mMol IVPB over 4 hours. For K = 3.1 - 3.4 mEq/L AND Phosphorou s 1.6 - 1.9 mg/dL: Replace with Potassium Phosphate 30 mMol IVPB over 4 hours. Recheck Potassium and Phosphorou s levels 4 hours after replacemen t complete.N otify MD for K < 3.1 mEq/L or Phosphorou s < 1.6 mg/dL prior to replacemen t. *Use PO or NJ administra tion unless patient is first 12 hours post-op, active GI bleed, acute arrhythmia s, ischemic bowel or NPO. Do Not Crush the ER tablets. DO NOT replace if patient is on dialysis, temperatur e < 35 Celsius, or serum creatinine > 2.0 mg/dL or GFR < 45 mL/min. DO NOT CRUSH.? For patients able to take medication s orally or via feeding tube >/= 14 [place], may dissolve each 20 mEq tablet in 4 oz of water.? Allow about 2 minutes for the tablets to disintegra te.? Stir before giving to prepare slurry and administer .? Please exclude patient's with feeding tube less than 14 [place] (Dobhoff, J-tube, etc) and pediatric and patients. Do not crush or chew. Cheladerrick [facility]age [facility] calcium gluconate 3 g in sodium chloride 0.9 % 100 mL IVPB calcium gluconate 3 g in sodium chloride 0.9 % 100 mL IVPB 2023-03 11:08: 14 Yes 3g 3 g, Intravenou s, Administer over 30 Minutes, As needed, Abnormal Lab Result, For NON-ICU Patients Only, Starting on Yumi 01/31/24 at 1108, For Ionized Calcium 1-1.05 mmol/L: Replace with 2 gm Calcium gluconate IVPB over 30 minutes x 1 dose. For Ionized Calcium 0.91 - 0.99 mmol/L: Replace with 3 gm Calcium gluconate IVPB over 30 minutes x 1 dose. Recheck Ionized Calcium level 4 hours after Calcium replacemen t.? Notify MD if ionized calcium < 0.91 mMol/L prior to replacemen t. *DO NOT replace if patient is on dialysis, temperatur e < 35 Celsius, or serum creatinine >2.0 mg/dL or GFR < 45 mL/min. [facility] calcium gluconate in NaCl 100mL IVPB 2 g calcium gluconate in NaCl 100mL IVPB 2 g 2023-03 11:08: 14 Yes 2g 2 g, Intravenou s, Administer over 30 Minutes, As needed, Abnormal Lab Result, For NON-ICU Patients Only., Starting on Yumi 01/31/24 at 1108, For Ionized Calcium 1-1.05 mmol/L: Replace with 2 gm Calcium gluconate IVPB over 30 minutes x 1 dose. For Ionized Calcium 0.91 - 0.99 mmol/L: Replace with 3 gm Calcium gluconate IVPB over 30 minutes x 1 dose. Recheck Ionized Calcium level 4 hours after Calcium replacemen t.? Notify MD if ionized calcium < 0.91 mMol/L prior to replacemen t. *DO NOT replace if patient is on dialysis, temperatur e < 35 Celsius, or serum creatinine >2.0 mg/dL or GFR < 45 mL/min. [facility] magnesium oxide (Mag-Ox) tablet 800 mg magnesium oxide (Mag-Ox) tablet 800 mg 2023-03 11:08: 14 Yes 800mg 800 mg, Oral, As needed, Abnormal Lab Result, For NON-ICU Patients Only., Starting on Yumi 01/31/24 at 1108, For Magnesium 1.8 - 2.0 mg/dL:? Replace with Magnesium 800 mg PO x 1 dose. For Magnesium 1.5 - 1.7 mg/dL: Replace with Magnesium 800 mg PO every 4 hours x 2 doses. For Magnesium 1.1 - 1.4 mg/dL:? Replace with Magnesium 800 mg PO every 4 hours x 3 doses.? Recheck Magnesium level 4 hours after the end of replacemen t.Notify MD if Magnesium level is < 1.1 mg/dL prior to replacemen t.*Use PO or NJ administra tion unless patient is first 12 hours post-op, active GI bleed, acute arrhythmia s, ischemic bowel or NPO. *DO NOT replace if patient is on dialysis, temperatur e < 35 Celsius, or serum creatinine > 2.0 mg/dL or GFR < 45 mL/min. [facility] magnesium sulfate IVPB 4 g magnesium sulfate IVPB 4 g 2023-03 11:08: 14 Yes 4g 4 g, Intravenou s, at 25 mL/hr, Administer over 4 Hours, As needed, Abnormal Lab Result, For NON-ICU Patients Only, Starting on Yumi 01/31/24 at 1108, For Magnesium 1.8 - 2 mg/dL: Replace with Magnesium Sulfate 1 gram IVPB over 1 hour x 1 dose. For Magnesium 1.5 - 1.7 mg/dL: Replace with Magnesium Sulfate 2 grams IVPB over 2 hours x 1 dose. For Magnesium 1.1 - 1.4 mg/dL:? Replace with Magnesium Sulfate 4 grams IVPB over 4 hours x 1 dose. Recheck Magnesium level 4 hours after the end of replacemen t.Notify MD if Magnesium level is < 1.1 mg/dL prior to replacemen t.*Use PO or NJ administra tion unless patient is first 12 hours post-op, active GI bleed, acute arrhythmia s, ischemic bowel or NPO. *DO NOT replace if patient is on dialysis, temperatur e < 35 Celsius, or serum creatinine > 2.0 mg/dL or GFR < 45 mL/min. [facility] magnesium sulfate IVPB 2 g magnesium sulfate IVPB 2 g 2023-03 11:08: 14 Yes 2g 2 g, Intravenou s, at 25 mL/hr, Administer over 2 Hours, As needed, Abnormal Lab Result. For NON-ICU Patients Only., Starting on Yumi 01/31/24 at 1108, For Magnesium 1.8 - 2 mg/dL: Replace with Magnesium Sulfate 1 gram IVPB over 1 hour x 1 dose. For Magnesium 1.5 - 1.7 mg/dL: Replace with Magnesium Sulfate 2 grams IVPB over 2 hours x 1 dose. For Magnesium 1.1 - 1.4 mg/dL:? Replace with Magnesium Sulfate 4 grams IVPB over 4 hours x 1 dose. Recheck Magnesium level 4 hours after the end of replacemen t.Notify MD if Magnesium level is < 1.1 mg/dL prior to replacemen t.*Use PO or NJ administra tion unless patient is first 12 hours post-op, active GI bleed, acute arrhythmia s, ischemic bowel or NPO. *DO NOT replace if patient is on dialysis, temperatur e < 35 Celsius, or serum creatinine > 2.0 mg/dL or GFR < 45 mL/min. [facility] magnesium sulfate in D5W IVPB 1 g magnesium sulfate in D5W IVPB 1 g 2023-03 11:08: 14 Yes 1g 1 g, Intravenou s, at 100 mL/hr, Administer over 1 Hours, As needed, Abnormal Lab Result, For NON-ICU Patients Only., Starting on Yumi 01/31/24 at 1108, For Magnesium 1.8 - 2 mg/dL: Replace with Magnesium Sulfate 1 gram IVPB over 1 hour x 1 dose. For Magnesium 1.5 - 1.7 mg/dL: Replace with Magnesium Sulfate 2 grams IVPB over 2 hours x 1 dose. For Magnesium 1.1 - 1.4 mg/dL:? Replace with Magnesium Sulfate 4 grams IVPB over 4 hours x 1 dose. Recheck Magnesium level 4 hours after the end of replacemen t.Notify MD if Magnesium level is < 1.1 mg/dL prior to replacemen t.*Use PO or NJ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
[2024-07-10] MEDS ORDERED: NA CHLORIDE 0.9% 1,000 ML ONE (23:10)
[2024-07-10 23:36] LABS: Absolute Eosinophils 0.2 K/uL (0-0.5); Absolute Lymphocytes (CBC) 2.5 K/uL (0.7-4.9); Absolute Monocytes 1.7 K/uL (0.1-1.3); Absolute Neutrophil 12.8 K/uL (1.8-8.0); Basophils % 0.3 % (0-1.3); Eosinophils % 1.3 % (0-4.4); Hematocrit 36.7 % (36.0-45.0); Hemoglobin 12.2 g/dL (12.0-15.0); Lymphocytes % 14.7 % (15.3-44.8); MCH 27.3 pg (27.0-35.0); MCHC 33.2 g/dL (32.0-36.0); MCV 82.3 fL (80-100); MPV 8.9 fL (7.6-11.3); Monocytes % 9.9 % (3.3-12.3); Neutrophils % 73.8 % (41.7-73.7); Platelets 256 thou/uL (152-406); RBC Red Blood Cell Count 4.45 M/uL (3.86-4.86); Red Cell Distribution Width 14.6 % (12.1-15.2)
[2024-07-10 23:52] LABS: ALT/SGPT 19 U/L (13-56); Albumin 3.4 g/dL (3.4-5.0); Albumin/Globulin Ratio 0.8 (1.1-1.8); Alkaline Phosphatase 108 U/L (45-117); Anion Gap 8.1 mEq/L (5.0-15.0); BUN Blood Urea Nitrogen 13 mg/dL (7-18); Bicarbonate 27 mEq/L (21-32); Bilirubin Total 0.4 mg/dL (0.2-1.0); Globulin 4.5 g/dL (2.3-3.5); Glomerular Filtration Rate 106 ml/min (=/>90); Glucose Level 103 mg/dL (74-106); Potassium 4.1 mEq/L (3.5-5.1); Protein, Total 7.9 g/dL (6.4-8.2); Sodium Level 136 mEq/L (136-145)
[2024-07-10 23:53] LABS: AST/SGOT < 10 U/L (15-37)
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
--- NOTE | 2024-07-11 00:15 | EDPHYS ---
Physician Documentation [facility] Name: Gabriela Crowe Age: 18 yrs Sex: Female : 2005 Arrival Date: 07/10/2024 Time: 21:44 Bed 17 Private MD: MAMADOU Physician Nic Roe HPI: 07/10 23:00 This 18 yrs old Female presents to ER via Ambulatory with complaints of head nima swelling, Headache. 23:00 The patient complains of pain to the top of head, left side of the back of head, left nima temporal area and left occipital area. The patient describes the headache as aching, swelling. Onset: The symptoms/episode began/occurred 3 day(s) ago. Associated signs and symptoms: Pertinent positives: scalp swelling . Severity of symptoms: At its worst the pain was mild, in the emergency department the pain is unchanged. Headache History: The patient has had previous headaches and this one is similar to previous episodes. The symptoms are alleviated by remaining still, the symptoms are aggravated by movement, palpation . The patient has not experienced similar symptoms in the past. 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 - Infectious Disease History:: Denies. - Social history:: Smoking status: Patient denies any tobacco usage or history of. - Family history:: not pertinent. ROS: 23:00 Constitutional: Negative for fever, chills, and weight loss, Eyes: Negative for injury, nima pain, redness, and discharge, ENT: Negative for injury, pain, and discharge, Neck: Negative for injury, pain, and swelling, Cardiovascular: Negative for chest pain, palpitations, and edema, Respiratory: Negative for shortness of breath, cough, wheezing, and pleuritic chest pain, Abdomen/GI: Negative for abdominal pain, nausea, vomiting, diarrhea, and constipation, Back: Negative for injury and pain, : Negative for injury, bleeding, discharge, and swelling, MS/Extremity: Negative for injury and deformity, Skin: Negative for injury, rash, and discoloration, Psych: Negative for depression, anxiety, suicide ideation, homicidal ideation, and hallucinations, Allergy/Immunology: Negative for hives, rash, and allergies, Endocrine: Negative for neck swelling, polydipsia, polyuria, polyphagia, and marked weight changes, Hematologic/Lymphatic: Negative for swollen nodes, abnormal bleeding, and unusual bruising, 23:00 Neuro: Positive for headache, Exam: 23:00 Constitutional: This is a well developed, well nourished patient who is awake, alert, nima and in no acute distress. Eyes: Pupils equal round and reactive to light, extra-ocular motions intact. Lids and lashes normal. Conjunctiva and sclera are non-icteric and not injected. Cornea within normal limits. Periorbital areas with no swelling, redness, or edema. ENT: Nares patent. No nasal discharge, no septal abnormalities noted. Tympanic membranes are normal and external auditory canals are clear. Oropharynx with no redness, swelling, or masses, exudates, or evidence of obstruction, uvula midline. Mucous membranes moist. Neck: Trachea midline, no thyromegaly or masses palpated, and no cervical lymphadenopathy. Supple, full range of motion without nuchal rigidity, or vertebral point tenderness. No Meningismus. Chest/axilla: Normal chest wall appearance and motion. Nontender with no deformity. No lesions are appreciated. Cardiovascular: Regular rate and rhythm with a normal S1 and S2. No gallops, murmurs, or rubs. Normal PMI, no JVD. No pulse deficits. Respiratory: Lungs have equal breath sounds bilaterally, clear to auscultation and percussion. No rales, rhonchi or wheezes noted. No increased work of breathing, no retractions or nasal flaring. Abdomen/GI: Soft, non-tender, with normal bowel sounds. No distension or tympany. No guarding or rebound. No evidence of tenderness throughout. Back: No spinal tenderness. No costovertebral tenderness. Full range of motion. Skin: Warm, dry with normal turgor. Normal color with no rashes, no lesions, and no evidence of cellulitis. MS/ Extremity: Pulses equal, no cyanosis. Neurovascular intact. Full, normal range of motion., bilateral aka Neuro: Awake and alert, GCS 15, oriented to person, place, time, and situation. Cranial nerves II-XII grossly intact. Motor strength 5/5 in all extremities. Sensory grossly intact. Cerebellar exam normal. Normal gait. Psych: Awake, alert, with orientation to person, place and time. Behavior, mood, and affect are within normal limits. 23:00 Neuro: Orientation: is normal, appropriate for stated age, no acute changes, Mentation: is normal, appropriate for stated age, no acute changes, Memory: is normal, appropriate for stated age, no acute changes, Cranial nerves: grossly normal, is grossly normal based on the patient's age, no acute changes, Cerebellar function: is grossly normal, is grossly normal based on the patient's age, no acute changes, Motor: is normal, is grossly normal based on the patient's age, no acute changes, moves all fours, strength is normal, strength is 5/5 in all extremities, Sensation: is normal, Gait: not applicable Deep tendon reflexes are 2+ (normal) in the bilateral brachioradialis, bicep, tricep and patellar and Achilles tendons, Babinski testing is normal, seizure activity, is not displayed by the patient, Vital Signs: 22:23 Weight 105.69 kg; Height 5 ft. 5 in. ; Pain 8/10; vc1 22:50 BP 139 / 90; Pulse 101; Resp 16; Temp 98.4; Pulse Ox 96% ; vc1 05 00:50 BP 129 / 82; Pulse 91; Resp 17; Pulse Ox 17% ; jj7 01:52 BP 133 / 73; Pulse 93; Resp 17; Temp 98.3; Pulse Ox 99% ; jj7 05 22:23 Body Mass Index 38.77 (105.69 kg, 165.1 cm) - Percentile 98.2 % vc1 07/10 22:23 Pain Scale: Adult vc1 [place] Coma Score: 07/10 23:07 Eye Response: spontaneous(4). Motor Response: obeys commands(6). Verbal Response: nima oriented(5). Total: 15. MDM: 22:44 Medical Screening Exam initiated nima 23:07 Differential diagnosis: cerebral abscess, cluster headache, cerebral vascular accident, nima migraine, tension headache. Data reviewed: vital signs, nurses notes, lab test result(s), radiologic studies, CT scan. Consideration of Admission/Observation Patient was admitted/placed on observation. Escalation of care including admission/observation considered. I considered the following discharge prescriptions or medication management in the emergency department Medications were administered in the Emergency Department. See MAR. Independent interpretation of the following test(s) in the Emergency Department CT Scan: My interpretation is ct head. Test considered but Not performed: Ultrasound no usg , scalp. Care significantly affected by the following chronic conditions: tbi, seizure, anxiety, bipolar. Counseling: I had a detailed discussion with the patient and/or guardian regarding the historical points, exam findings, and any diagnostic results supporting the discharge/admit diagnosis, lab results, radiology results, the need for outpatient follow up, for definitive care, a family practitioner, a neurosurgeon. 07/10 22:48 Order name: CBC with Diff; Complete Time: 23:58 [facility] 07/10 22:48 Order name: CMP; Complete Time: 23:58 [facility] 07/10 22:48 Order name: Test, Serum; Complete Time: 23:58 [facility] 07/10 22:48 Order name: UA Rfx El Cult if indicated; Complete Time: 00:35 [facility] 07/10 22:48 Order name: CT Head Brain wo Cont nima Administered Medications: 23:36 Drug: NS 0.9% IV 1000 ml IV at 1 bolus Per protocol; to be given as a bolus over 60 kj2 minutes Route: IV; Rate: 1 bolus; Site: right antecubital; 07/11 01:52 Follow up: IV Status: Infusion continued upon transfer jj7 01:29 Drug: Cefepime IVPB 1 grams IVPB at 200 ml/hr once over 30 mins; (mix in NS 100 mL) j Route: IVPB; Rate: 200 ml/hr; Infused Over: 30 mins; Site: right antecubital; 01:50 Follow up: IV Status: Infusion continued upon transfer j7 01:51 Not Given (SENT WITH EMS. OTHER ANTIBIOTIC INFUSINGg): vancomycin1 grams IVPB once over jj7 2 hrs Disposition Summary: 07/11/24 00:14 Transfer Ordered Notes: Transfer Location: [facility] nima Reason: Higher level of care nima Condition: Stable nima Problem: new nima Symptoms: have improved nima Accepting Physician: [facility](07/11/24 01:55) jj7 Diagnosis - Cutaneous abscess of unspecified hand nima - Encounter for surgical aftercare following surgery on the skin and subcutaneous nima tissue - craniectomy plastic flap, 6 months - Elevated white blood cell count [facility] Discharge Instructions: - Discharge Summary Sheet nima - Contusion nima - Hematoma nima - Hematoma, [id number] nima - Contusion, [id number] nima Forms: - Medication Reconciliation Form nima - SBAR form nima Prescriptions: - Tylenol 325 mg Oral tablet - take 2 tablets ORAL route every 6 hours as needed; 40 tablet; Refills: 0, nima Product Selection Permitted Signatures: Dispatcher [employer] EDMS Nic Roe MD MD cha Calcote, Vanessa RN RN vc1 Karsten Howard RN RN jj7 Sheela Burks RN RN kj2 Corrections: (The following items were deleted from the chart) 07/10 22:49 22:49 CBC+H.LAB.BRZ ordered. EDMS EDMS 22:49 22:49 COMPREHENSIVE METABOLIC PANEL+C.LAB.BRZ ordered. EDMS EDMS 22:49 22:49 TEST, SERUM+SC.LAB.BRZ ordered. EDMS EDMS 22:49 22:49 UA Rfx El Cult if indicated+U.LAB.BRZ ordered. EDMS EDMS 07/11 01:55 00:14 to [facility] nima jj7
[2024-07-11 00:24] LABS: Renal Epithelial <5 /HPF (None Seen); Sqamous Epithelial <5 /HPF (None Seen); Urine Bacteria None Seen /HPF (<20); Urine Bilirubin NEGATIVE (Negative); Urine Blood Negative (Negative); Urine Clarity Clear (Clear); Urine Color Light-Yellow (Yellow); Urine Culture Reflex Order NOT NEEDED; Urine Glucose NEGATIVE (Negative); Urine Ketones NEGATIVE (Negative); Urine Microscopic Reflex YN ORDER UMIC; Urine Mucus Slight /HPF (None Seen); Urine Nitrite NEGATIVE (Negative); Urine Protein 1+ (Negative); Urine RBC <5 /HPF (None Seen); Urine Urobilinogen Normal (Normal); Urine WBC <5 /HPF (<5); Urine pH 7.5 (5.0-7.0)
--- NOTE | 2024-07-11 00:36 | RAD REPORT ---
CLINICAL HISTORY: Headache. COMPARISON: CT Head 12/08/2022. TECHNIQUE: CT HEAD WITHOUT IV CONTRAST on 07/10/2024 10:48 PM CDT This exam was performed according to our departmental dose-optimization program, which includes autom ated exposure control, adjustment of the mA and/or kV according to patient size and/or use of iterative reconstruction technique. FINDINGS: There is no acute hemorrhage, mass effect or midline shift. There is mild left frontal encephalomalac ia. There is no hydrocephalus. There is no significant volume loss for age. Extensive left hemispheric cranioplasty is present. Orbits and globes are unremarkable. The paranasal sinuses are clear. Mastoid air cells are clear. IMPRESSION: No acute intracranial findings. Electronically signed by: Anthony Saunders MD 07/11/2024 12:32 AM CDT Due to temporary technical issues with the PACS/[employer] reporting system, reports are being vance d by the in-house radiologist without review as a courtesy to ensure prompt reporting the interpreting radiologist is fully responsible for the content of the report. Transcribed Date/Time: 07/11/2024 12:36 AM
[2024-07-11] MEDS ORDERED: VANCOMYCIN 1 GM/VIAL ONE (00:59)
[2024-07-11] MEDS ORDERED: NA CHLORIDE 0.9% 250 ML ONE (01:00)
[2024-07-11] MEDS ORDERED: NA CHLORIDE 0.9% 100 ML ONE (01:00)
[2024-07-11] MEDS ORDERED: CEFEPIME 1 GM/VIAL ONE (01:00)
[2024-07-11 02:25] VITALS: BP 133/73; TEMP 98.3; O2SAT 99
== END 2024-07-11 01:55 | disposition short-term general hospital (02) ==
LOC: ER 21:44
DX: L02.811 Cutaneous abscess of head [any part, except face] (principal); D72.829 Elevated white blood cell count, unspecified; Z48.811 Encounter for surgical aftercare following surgery on the nervous system
CPT/HCPCS: 36415; 70450; 80053; 81001; 84703; 85025; 96361; 96365; 99285; J0692; J3370; J7030; J7050